=== PATIENT | male | born 1985 | race Caucasian/White ===

== ENCOUNTER 2020-08-22 09:19 | Outpatient (RCR) | payer BC, SELFPAY | END 2020-10-28 23:59 | LOC: IMMUN 09:19 | PROVIDERS: PCP Internal Medicine; Visit Provider Family Medicine | DX: Z23 Encounter for immunization (principal) | CPT/HCPCS: 0001A; 0002A; 91300 ==

== ENCOUNTER → 2023-06-20 | Outpatient (CLI) | payer BC, SELFPAY ==
--- OUTSIDE RECORDS SUMMARY | 2023-06-20 15:22 | XMS RPT_ITS | CCD ---
Author Name Unknown Address [address] [place] [address] Organization [facility] Care Team Providers Care Drafter Construction Name Role Phone Germain Dunham MD Primary Care Provider GERMAIN DUNHAM Primary Care Unavailable IVANA MUÑOZ Referring Unavailable GERMAIN DUNHAM Primary Care Unavailable IVANA MUÑOZ Attending Unavailable GERMAIN DUNHAM Primary Care Unavailable Allergies Allergy Classification Reported Allergen(s) Allergy Type Date of Onset Reaction(s) Facility (3 sources) Shellfish; Translations: [SHELLFISH] Food Allergy 03-28-2013 GI Upset, Vomiting [facility] Work Phone: Medications Completed/Discontinued Medications Medication Drug Class(es) Dates Sig (Normalized) Sig (Original) MEN'S MULTI-VITAMIN ORAL (2 sources) take 1 tablet by marah th once daily MEN'S MULTI-VITAMIN ORAL Take 1 tablet by mouth once daily. 0 Active Problems Active Problems Problem Classification Problem Date Documented Date Episodic/Chronic Disorders usually diagnosed in infancy, childhood, or adolescence (2 sources) Attention deficit hyperactivity disorder, predominantly inattentive type; Translations: [Other specified behavioral and emotional disorders with onset usually occurring in childhood and adolescence] Onset: 04-02-2005 06-11-2015 Chronic Immunizations and screening for infectious disease (1 source) Exposure to streptococcal pharyngitis; Translations: [Contact with and (suspected) exposure to other bacterial communicable diseases] Episodic Mood disorders (2 sources) Mild depression; Translations: [Mild depression] Onset: 01-16-2022 Chronic Other skin disorders (1 source) Disorder of sweat gland; Translations: [Eccrine sweat disorder, unspecified] Episodic Residual codes; unclassified (1 source) Low motivation; Translations: [Other specified personal risk factors, not elsewhere classified] Episodic Residual codes; unclassified (1 source) Intolerant of cold; Translations: [Other general symptoms and signs] Episodic Past or Other Problems Problem Classification Problem Date Documented Da te Episodic/Chronic Malaise and fatigue (2 sources) Fatigue; Translations: [Other fatigue] Onset: 01-16-2022 Episodic Other screening for suspected conditions (not mental disorders or infectious disease) (2 sources) Patient encounter status; Translations: [Encounter for screening for lipoid disorders] Onset: 01-16-2022 Episodic Other skin disorders (1 source) Eccrine sweat disorder, unspecified; Translations: [Sweating abnormality] Onset: 01-16-2022 Episodic Residual codes; unclassified (1 source) Other specified personal risk factors, not elsewhere classified; Translations: [Lack of motivation] Onset: 01-16-2022 Episodic Residual codes; unclassified (1 source) Other general symptoms and signs; Translations: [Intolerance to cold] Onset: 01-16-2022 Episodic Spondylosis; intervertebral disc disorders; other back problems (5 sources) Chronic low back pain; Translations: [Chronic bilateral low back pain, unspecified whether sciatica present] Onset: 01-26-2018 Episodic Results Test Name Value Interpretation Reference Range Facil ity Vital Signs Date Time Vital Sign Value Performing Clinician Thais lyman 05-31-2022 15:14-0500 Body temperature 97.5 [degF] Flex Smith APRN.CNP Work Phone: [facility] 05-31-2022 15:14-0500 Body weight 65.86 kg Flex Smith APRN.SHAUN Work Phone: [facility] 05-31-2022 15:14-0500 Diastolic blood pressure 74 mm[Hg] Flex Smith APRN.TIRE REBUILDER Work Phone: [facility] 05-31-2022 15:14-0500 Heart rate 65 /min Flex Smith APRN.TIRE REBUILDER Work Phone: [facility] 05-31-2022 15:14-0500 Respiratory rate 21 /min Flex Smith APRN.SHAUN Work Phone: [facility] 05-31-2022 15:14-0500 SaO2% (BldA) [Mass fraction] 100 % Flex Smith APRN.SHAUN Work Phone: [facility] 05-31-2022 15:14-0500 Systolic blood pressure 114 mm[Hg] Flex Smith TELEPHONE ANSWERING SERVICE OPERATOR.TIRE REBUILDER Work Phone: [facility] 01-11-2022 13:00-0400 Body weight 63.05 kg Ivana Muñoz TELEPHONE ANSWERING SERVICE OPERATOR.TIRE REBUILDER Work Phone: [facility] 01-11-2022 13:00-0400 Diastolic blood pressure 66 mm[Hg] Ivana Muñoz TELEPHONE ANSWERING SERVICE OPERATOR.TIRE REBUILDER Work Phone: [facility] 01-11-2022 13:00-0400 Heart rate 68 /min Ivana Muñoz TELEPHONE ANSWERING SERVICE OPERATOR.TIRE REBUILDER Work Phone: [facility] 01-11-2022 13:00-0400 Respiratory rate 16 /min Ivana Muñoz TELEPHONE ANSWERING SERVICE OPERATOR.TIRE REBUILDER Work Phone: [facility] 01-11-2022 13:00-0400 Systolic blood pressure 108 mm[Hg] Ivana Muñoz TELEPHONE ANSWERING SERVICE OPERATOR.TIRE REBUILDER Work Phone: [facility] Encounters Encounter Date Encounter Type Care Provider Facility Start: 05-31-2022 End: 05-31-2022 ambulatory GERMAIN DUNHAM Facility:[facility] Start: 05-31-2022 End: 05-31-2022 Patient encounter procedure Flex Hopperwillis TELEPHONE ANSWERING SERVICE OPERATOR.TIRE REBUILDER Work Phone: [facility] Procedures Date Procedure Procedure Detail Performing Clinician Start: 05-31-2022 STREP A MOLECULAR (POC) Melissa Forrest APRN.TIRE REBUILDER Work Phone: Start: 01-11-2022 Adult depression screening assessment Ivana [facility] TELEPHONE ANSWERING SERVICE OPERATOR.TIRE REBUILDER Work Phone: Plan of Treatment Date Care Activity Detail Author Start: 01-16-2027 LIPID SCREEN LIPID SCREEN [facility] Start: 12-22-2025 Urine microalbumin profile DTA P,TDAP,TD (9 - Td or Tdap) [facility] Start: 01-11-2023 Adult depression [facility] assessment DEPRESSION SCREENING [facility] Start: 01-11-2023 HEPATITIS C SCREENING HEPATITIS C [facility] Immunizations Immunization Date Immunization Notes Care Provider Trever sims 03-13-2021 influenza, injectabl e, quadrivalent, contains preservative Ivana Older TELEPHONE ANSWERING SERVICE OPERATOR.[facility] Work Phone: [facility] 03-18-2020 influenza, injectabl e, quadrivalent, contains preservative Ivana Older TELEPHONE ANSWERING SERVICE OPERATOR.[facility] Work Phone: [facility] 02-08-2019 influenza, injectabl e, quadrivalent, contains preservative Ivana Older TELEPHONE ANSWERING SERVICE OPERATOR.[facility] Work Phone: [facility] 01-26-2018 influenza, injectabl e, quadrivalent, preservative free Ivana Older TELEPHONE ANSWERING SERVICE OPERATOR.[facility] Work Phone: [facility] Work Phone: 12-23-2015 tetanus and diphther ia toxoids, adsorbed, preservative free, for adult use (5 Lf of tetanus toxoid and 2 Lf of diphtheria toxoid) Ivana Older TELEPHONE ANSWERING SERVICE OPERATOR.[facility] Work Phone: [facility] 06-11-2015 influenza, injectabl e, quadrivalent, contains preservative Ivana Older TELEPHONE ANSWERING SERVICE OPERATOR.[facility] Work Phone: [facility] 06-11-2015 influenza, injectabl e, quadrivalent, preservative free Ivana Older TELEPHONE ANSWERING SERVICE OPERATOR.[facility] Work Phone: [facility] Work Phone: 06-04-2014 influenza, seasonal, injectable Ivana Older TELEPHONE ANSWERING SERVICE OPERATOR.TIRE REBUILDER Work Phone: [facility] Work Phone: 03-07-2013 influenza, injectabl e, quadrivalent, preservative free Ivana Older TELEPHONE ANSWERING SERVICE OPERATOR.TIRE REBUILDER Work Phone: [facility] Work Phone: 03-07-2013 tetanus toxoid, redu vineet diphtheria toxoid, and acellular pertussis vaccine, adsorbed Ivana Older TELEPHONE ANSWERING SERVICE OPERATOR.TIRE REBUILDER Work Phone: [facility] Work Phone: 04-12-2007 influenza virus vacc ine, unspecified formulation Ivana Older TELEPHONE ANSWERING SERVICE OPERATOR.TIRE REBUILDER Work Phone: [facility] Work Phone: 12-29-2005 tetanus toxoid, redu vineet diphtheria toxoid, and acellular pertussis vaccine, adsorbed Ivana Older TELEPHONE ANSWERING SERVICE OPERATOR.[facility] Work Phone: [facility] Work Phone: 01-13-2004 meningococcal polysaccharide vaccine (MPSV4) Ivana Older TELEPHONE ANSWERING SERVICE OPERATOR.[facility] Work Phone: [facility] 04-13-1999 tetanus and diphther ia toxoids, adsorbed, preservative free, for adult use (2 Lf of tetanus toxoid and 2 Lf of diphtheria toxoid) Ivana Older TELEPHONE ANSWERING SERVICE OPERATOR.[facility] Work Phone: [facility] 12-31-1998 hepatitis B vaccine, pediatric or pediatric/adolescent dosage Ivana Older TELEPHONE ANSWERING SERVICE OPERATOR.[facility] Work Phone: [facility] 08-25-1998 hepatitis B vaccine, pediatric or pediatric/adolescent dosage Ivana Older TELEPHONE ANSWERING SERVICE OPERATOR.TIRE REBUILDER Work Phone: [facility] 12-11-1997 hepatitis B vaccine, pediatric or pediatric/adolescent dosage Ivana Older TELEPHONE ANSWERING SERVICE OPERATOR.TIRE REBUILDER Work Phone: [facility] 12-11-1997 measles, mumps and rubella virus vaccine Ivana Older TELEPHONE ANSWERING SERVICE OPERATOR.TIRE REBUILDER Work Phone: [facility] 01-12-1990 diphtheria, tetanus toxoids and pertussis vaccine Ivana Older TELEPHONE ANSWERING SERVICE OPERATOR.TIRE REBUILDER Work Phone: [facility] 01-12-1990 trivalent poliovirus vaccine, live, oral Ivana Older TELEPHONE ANSWERING SERVICE OPERATOR.TIRE REBUILDER Work Phone: [facility] Work Phone: 12-24-1987 measles, mumps and rubella virus vaccine Ivana Older TELEPHONE ANSWERING SERVICE OPERATOR.TIRE REBUILDER Work Phone: [facility] 09-02-1987 diphtheria, tetanus toxoids and pertussis vaccine Ivana Older TELEPHONE ANSWERING SERVICE OPERATOR.TIRE REBUILDER Work Phone: [facility] 09-02-1987 haemophilus influenz ae type b vaccine, HbOC conjugate Ivana Older TELEPHONE ANSWERING SERVICE OPERATOR.TIRE REBUILDER Work Phone: [facility] 09-02-1987 haemophilus influenz ae type b vaccine, PRP-D conjugate Ivana Older TELEPHONE ANSWERING SERVICE OPERATOR.[facility] Work Phone: [facility] Work Phone: 09-02-1987 trivalent poliovirus vaccine, live, oral Ivana Older TELEPHONE ANSWERING SERVICE OPERATOR.[facility] Work Phone: [facility] Work Phone: 08-22-1987 Chicken Pox (disease) Ivana Ol myah TELEPHONE ANSWERING SERVICE OPERATOR.TIRE REBUILDER Work Phone: [facility] Work Phone: 07-15-1986 diphtheria, tetanus toxoids and pertussis vaccine Ivana Older TELEPHONE ANSWERING SERVICE OPERATOR.[facility] Work Phone: [facility] 12-10-1985 diphtheria, tetanus toxoids and pertussis vaccine Ivana Older TELEPHONE ANSWERING SERVICE OPERATOR.[facility] Work Phone: [facility] 09-04-1985 diphtheria, tetanus toxoids and pertussis vaccine Ivana Older TELEPHONE ANSWERING SERVICE OPERATOR.[facility] Work Phone: [facility] 09-04-1985 trivalent poliovirus vaccine, live, oral Ivana Older TELEPHONE ANSWERING SERVICE OPERATOR.[facility] Work Phone: [facility] Work Phone: 05-28-1985 diphtheria, tetanus toxoids and pertussis vaccine Ivana Older TELEPHONE ANSWERING SERVICE OPERATOR.[facility] Work Phone: [facility] 05-28-1985 trivalent poliovirus vaccine, live, oral Ivana Older TELEPHONE ANSWERING SERVICE OPERATOR.[facility] Work Phone: [facility] Work Phone: 03-14-1985 diphtheria, tetanus toxoids and pertussis vaccine Ivana Older TELEPHONE ANSWERING SERVICE OPERATOR.[facility] Work Phone: [facility] 03-14-1985 trivalent poliovirus vaccine, live, oral Ivana Older TELEPHONE ANSWERING SERVICE OPERATOR.[facility] Work Phone: [facility] Work Phone: Payers Date Payer Category Payer Unknown [employer] PPO [id number] 2015-Present [phone] [address] [place] [address] PPO [id number] 2015 Unknown [id number] Social History Date Type Detail Facility Start: 06-11-2015 Tobacco smoking stat us NHIS Never smoked tobacco [facility] Work Phone: Start: 06-11-2015 Tobacco use and exposure Smoke less tobacco non-user [facility] Work Phone: Start: 01-11-2022 End: 05-31-2022 Alcohol intake Current drinker of alcohol (finding) [facility] Start: 01-11-2022 End: 05-31-2022 Alcohol intake [facility] Start: 01-11-2022 History SDOH Alcohol Frequency 5 [facility] Start: 01-11-2022 History SDOH Alcohol Std Drinks 1 [facility] Start: 01-11-2022 History SDOH Social Connections Get Together 2 [facility] Start: 01-11-2022 History SDOH Social Connections [employer] 3 [facility] Start: 1985 Sex Assigned At Not on file C [facility] Progress note 05-31-2022 Note Date & Type Note Facility 05-31-2022 Note HNO ID: [id number] Author: Flex Smith APRN.TIRE REBUILDER Service: ? Author Type: Nurse Practitioner Type: Progress Notes Filed: 05/31/2022 3:35 PM Note Text: Subjective HPI Nontoxic-appearing male presents urgent care chief plaint sinus drainage. Duration of symptom 1 week. Associated symptoms listed above. Presents today for testing for strep throat. States daughter and both tested first strep throat today and were positive. Concerned about possible group a pharyngeal infection. Has not used any OTC medications. Denies any significant pain. Denies any fever body aches chills productive cough chest pain shortness of breath pleuritic pain hemoptysis nausea vomiting abdominal pain change in bowel or bladder habits. Did have tonsils removed as a child. Past medical history prescription medication use and allergies reviewed. .Patient presents with: Sinus Problem: Drainage x 1 week PAST MEDICAL HISTORY Diagnosis Date Attention deficit disorder without mention of hyperactivity 1997 Ocular migraine Other psoriasis PAST SURGICAL HISTORY Procedure Laterality Date REMOVE TONSILS/ADENOIDS,12+ Y/O 1998 ALLERGIES Shellfish MEDICATIONS MEN'S MULTI-VITAMIN ORAL Take 1 tablet by mouth once daily. FAMILY HISTORY Problem Relation Age of Onset other (cholecystitis) Father Cancer Sister thyroid Prostate Cancer Maternal Grandfather Hypertension Maternal Grandfather Diabetes Maternal Grandfather ADULT ON-SET Diabetes Paternal Grandmother ADULT ON-SET Coronary Artery Disease Paternal Grandfather [place] Social History Tobacco Use Smoking status: Never Smokeless tobacco: Never Vaping Use Vaping Use: Never used Substance Use Topics Alcohol use: Yes Alcohol/week: 6.0 standard drinks Types: 6 Cans of Beer (12oz) per week Drug use: No BP 114/74 Pulse 65 Temp 36.4 ?C (97.5 ?F) Resp 21 Wt 65.9 kg (145 lb 3.2 oz) SpO2 100% BMI 20.25 kg/m? Review of Systems Constitutional: Negative for chills, fever and malaise/fatigue. HENT: Positive for congestion. Negative for ear discharge, ear pain, sinus pain and sore throat. Eyes: Negative for blurred vision, pain, discharge and redness. Respiratory: Negative for cough, hemoptysis, sputum production, shortness of breath, wheezing and stridor. Cardiovascular: Negative for chest pain. Gastrointestinal: Negative for abdominal pain, diarrhea, nausea and vomiting. Musculoskeletal: Negative for myalgias. Skin: Negative for itching and rash. Neurological: Negative for dizziness and headaches. Objective Physical Exam Constitutional: General: He is not in acute distress. Appearance: He is not diaphoretic. HENT: Head: Normocephalic. Mouth/Throat: Lips: [place]. Mouth: Mucous membranes are moist. Pharynx: Oropharynx is clear. Uvula midline. No pharyngeal swelling, oropharyngeal exudate, posterior oropharyngeal erythema or uvula swelling. Eyes: Conjunctiva/sclera: Conjunctivae normal. Pupils: Pupils are equal, round, and reactive to light. Cardiovascular: Rate and Rhythm: Normal rate and regular rhythm. Heart sounds: Normal heart sounds. Pulmonary: Effort: Pulmonary effort is normal. No tachypnea, accessory muscle usage or respiratory distress. Breath sounds: Normal breath sounds. No stridor. No wheezing, rhonchi or rales. Musculoskeletal: Cervical back: Normal range of motion and neck supple. No rigidity or tenderness. Lymphadenopathy: Cervical: No cervical adenopathy. Skin: General: Skin is warm and dry. Neurological: Mental Status: He is alert and oriented to person, place, and time. ASSESSMENT/PLAN: 1. Strep throat exposure - ICD9: V01.89, ICD10: Z20.818 Diagnosed with strep throat exposure. Strep test was negative. We will treat as a viral cause of nasal congestion. Patient was educated on supportive therapies. Patient will follow up with primary care provider as needed. Patient was instructed to immediately proceed to emergency room for any new, worsening, or symptoms lasting longer than anticipated. The patient's clinical presentation is otherwise unremarkable at this time. Based on exam and clinical finding, the patient is stable for discharge. Plan of care was discussed with patient. Patient verbalizes understanding and agrees to plan of care. This note was generated using [employer] software. It may contain errors in wording, punctuation, or spelling. Flex Smith APRN.SHAUN [facility] History of Present illness Narrative 05-31-2022 Flex Smith APRN.SHAUN - 05/31/2022 3:18 PM EST Note Date & Type Note Facility 05-31-2022 History of Presen t illness Narrative Subjective HPI Nontoxic-appearing male presents urgent care chief plaint sinus drainage. Duration of symptom 1 week. Associated symptoms listed above. Presents today for testing for strep throat. States daughter and both tested first strep throat today and were positive. Concerned about possible group a pharyngeal infection. Has not used any OTC medications. Denies any significant pain. Denies any fever body aches chills productive cough chest pain shortness of breath pleuritic pain hemoptysis nausea vomiting abdominal pain change in bowel or bladder habits. Did have tonsils removed as a child. Past medical history prescription medication use and allergies reviewed. .Patient presents with: Sinus Problem: Drainage x 1 week PAST MEDICAL HISTORY Diagnosis Date Attention deficit disorder without mention of hyperactivity 1997 Ocular migraine Other psoriasis PAST SURGICAL HISTORY Procedure Laterality Date REMOVE TONSILS/ADENOIDS,12+ Y/O 1998 ALLERGIES Shellfish MEDICATIONS MEN'S MULTI-VITAMIN ORAL Take 1 tablet by mouth once daily. FAMILY HISTORY Problem Relation Age of Onset other (cholecystitis) Father Cancer Sister thyroid Prostate Cancer Maternal Grandfather Hypertension Maternal Grandfather Diabetes Maternal Grandfather ADULT ON-SET Diabetes Paternal Grandmother ADULT ON-SET Coronary Artery Disease Paternal Grandfather [place] Social History Tobacco Use Smoking status: Never Smokeless tobacco: Never Vaping Use Vaping Use: Never used Substance Use Topics Alcohol use: Yes Alcohol/week: 6.0 standard drinks Types: 6 Cans of Beer (12oz) per week Drug use: No BP 114/74 Pulse 65 Temp 36.4 C (97.5 F) Resp 21 Wt 65.9 kg (145 lb 3.2 oz) SpO2 100% BMI 20.25 kg/m Review of Systems Constitutional: Negative for chills, fever and malaise/fatigue. HENT: Positive for congestion. Negative for ear discharge, ear pain, sinus pain and sore throat. Eyes: Negative for blurred vision, pain, discharge and redness. Respiratory: Negative for cough, hemoptysis, sputum production, shortness of breath, wheezing and stridor. Cardiovascular: Negative for chest pain. Gastrointestinal: Negative for abdominal pain, diarrhea, nausea and vomiting. Musculoskeletal: Negative for myalgias. Skin: Negative for itching and rash. Neurological: Negative for dizziness and headaches. Objective Physical Exam Constitutional: General: He is not in acute distress. Appearance: He is not diaphoretic. HENT: Head: Normocephalic. Mouth/Throat: Lips: [place]. Mouth: Mucous membranes are moist. Pharynx: Oropharynx is clear. Uvula midline. No pharyngeal swelling, oropharyngeal exudate, posterior oropharyngeal erythema or uvula swelling. Eyes: Conjunctiva/sclera: Conjunctivae normal. Pupils: Pupils are equal, round, and reactive to light. Cardiovascular: Rate and Rhythm: Normal rate and regular rhythm. Heart sounds: Normal heart sounds. Pulmonary: Effort: Pulmonary effort is normal. No tachypnea, accessory muscle usage or respiratory distress. Breath sounds: Normal breath sounds. No stridor. No wheezing, rhonchi or rales. Musculoskeletal: Cervical back: Normal range of motion and neck supple. No rigidity or tenderness. Lymphadenopathy: Cervical: No cervical adenopathy. Skin: General: Skin is warm and dry. Neurological: Mental Status: He is alert and oriented to person, place, and time. ASSESSMENT/PLAN: 1. Strep throat exposure - ICD9: V01.89, ICD10: Z20.818 Diagnosed with strep throat exposure. Strep test was negative. We will treat as a viral cause of nasal congestion. Patient was educated on supportive therapies. Patient will follow up with primary care provider as needed. Patient was instructed to immediately proceed to emergency room for any new, worsening, or symptoms lasting longer than anticipated. The patient's clinical presentation is otherwise unremarkable at this time. Based on exam and clinical finding, the patient is stable for discharge. Plan of care was discussed with patient. Patient verbalizes understanding and agrees to plan of care. This note was generated using [employer] software. It may contain errors in wording, punctuation, or spelling. Flex Smith APRN.SHAUN documented in this encounter [facility] Progress note 01-11-2022 Note Date & Type Note Facility 01-11-2022 Note HNO ID: [id number] Author: Ivana Muñoz APRN.CNP Service: ? Author Type: Nurse Practitioner Type: Progress Notes Filed: 01/11/2022 4:25 PM Note Text: CC: Patient presents with: Physical: Annual Physical HPI Bennett Huber is a 36 year old male established patient of Dr. Dunham who presents today for annual physical exam. Exercise: works out regularly by walking, playing with his children and yard work. Diet: Watches diet for salt (salty snacks, added salt, processed frozen/canned foods), sugary/sweet snacks, unhealthy fats: Yes Caffeine: 2 cups a day Water intake: large amouints a day average of 7-8 glasses aday. ADHD: controlled with behavior modifications. Had been on adderall and other stimulants since high school, but stopped these years ago because they were causing him palpitations. Has noticed fatigue and low motivation over the past year. Seems to not enjoy daily activities as much. Does report getting cold easily and intolerance of the cold. Also has noticed an increase in his sweating over the past year as well. Had read testosterone can cause this in males. Denies any noticeable low libido or sexual dysfunction. Did a PHQ-9 scale prior to coming in rating an 8. Has noticed an increase in difficulty concentrating with these symptoms Sleep: is described as normal. 6-7 hours. Denies snoring, waking up gasping, or witnessed apnea Alcohol use: drinks less than one drink a day Drug use: No Appetite: good Stresses: Major stressor: job is stressful a times Suicidal Thoughts: No suicidal ideation, intent or plan Support: Comes from multiple sources including Counseling: No Chronic back pain: Goes to the chiropractor, was last in physical therapy last year. Has been told he needs to do strength training to help with this. Denies difficulty or incontinence of bowel/bladder, weakness, or numbness. Does have tingling to legs intermittently when sciatica is present with back pain. REVIEW OF SYSTEMS General: no fevers, no chills, no night sweats, no recurrent infections, no change in appetite, no change in energy, and no significant changes in weight Respiratory: no cough, no wheezing, no shortness of breath, no hemoptysis Cardiovascular: no chest pain, no chest pressure, no palpitations, and no swelling GI: No nausea, vomiting, or diarrhea : No history of dysuria, frequency or incontinence Musculoskeletal: Negative for joint pain or swelling, or muscle pain outside of chronic controlled back pain. Skin: Negative for lesions, rash, and itching Psych: See HPI Endocrine: no weight gain, no weight loss, no heat intolerance, no polyuria, no polyphagia, and no polydipsia Neurologic: No headache, weakness, numbness, tingling, dizziness, syncope. PAST MEDICAL HISTORY Diagnosis Date Attention deficit disorder without mention of hyperactivity 1997 Ocular migraine Other psoriasis PAST SURGICAL HISTORY Procedure Laterality Date REMOVE TONSILS/ADENOIDS,12+ Y/O 1998 ALLERGIES Shellfish MEDICATIONS MEN'S MULTI-VITAMIN ORAL Take 1 tablet by mouth once daily. FAMILY HISTORY Problem Relation Age of Onset Prostate Cancer Maternal Grandfather Hypertension Maternal Grandfather Diabetes Maternal Grandfather ADULT ON-SET Diabetes Paternal Grandmother ADULT ON-SET Coronary Artery Disease Paternal Grandfather [place] Cancer Sister thyroid Social History Tobacco Use Smoking status: Never Smokeless tobacco: Never Substance Use Topics Alcohol use: Yes Alcohol/week: 15.0 standard drinks Types: 6 Cans of Beer (12oz) per week Comment: occasionally Drug use: No PHYSICAL EXAM BP 108/66 Pulse 68 Resp 16 Wt 63 kg (139 lb) BMI 19.39 kg/m? General Appearance: well appearing, in no acute distress, alert Pysch: mood and affect broad and appropriate Skin: Skin color, texture, turgor normal for age; Eyes: conjunctiva pink and moist, no icterus, sclera white, non-injected Neck: Thyroid normal size and symmetric without palpable nodules, No adenopathy Lymph nodes: No cervical lymphadenopathy and No supraclavicular lymphadenopathy Lungs: Lungs clear to auscultation. No wheezing, rhonchi, rales. Heart: RRR without murmur, gallop, or rubs. No ectopy Extremities: No deformities, edema, skin discoloration, clubbing or cyanosis. Good capillary refill. Neurological: Gait normal. Reflexes normal and symmetric. Sensation grossly intact. HEPATITIS C SCREENING Never done HIV SCREENING Never done LIPID SCREEN due on 12/26/2019 INFLUENZA(1) due on 01/21/2022 DEPRESSION SCREENING due on 01/11/2023 DTAP,TDAP,TD(9 - Td or Tdap) due on 12/22/2025 HEPATITIS B Completed COVID-19 VACCINE Completed ASSESSMENT/PLAN: 1. Annual physical exam - ICD9: V70.0, ICD10: Z00.00 (primary diagnosis) - Counseled on healthy diet and regular exercise - Counseled on limiting alcohol intake to 2 drinks per day - Depression screening tool complete (more content not included)... [facility] History of Present illness Narrative 01-11-2022 Ivana Muñoz APRN.CNP - 01/11/2022 1:03 PM EDT Note Date & Type Note Facility 01-11-2022 History of Presen t illness Narrative CC: Patient presents with: Physical: Annual Physical HPI Bennett Huber is a 36 year old male established patient of Dr. Dunham who presents today for annual physical exam. Exercise: works out regularly by walking, playing with his children and yard work. Diet: Watches diet for salt (salty snacks, added salt, processed frozen/canned foods), sugary/sweet snacks, unhealthy fats: Yes Caffeine: 2 cups a day Water intake: large amouints a day average of 7-8 glasses aday. ADHD: controlled with behavior modifications. Had been on adderall and other stimulants since high school, but stopped these years ago because they were causing him palpitations. Has noticed fatigue and low motivation over the past year. Seems to not enjoy daily activities as much. Does report getting cold easily and intolerance of the cold. Also has noticed an increase in his sweating over the past year as well. Had read testosterone can cause this in males. Denies any noticeable low libido or sexual dysfunction. Did a PHQ-9 scale prior to coming in rating an 8. Has noticed an increase in difficulty concentrating with these symptoms Sleep: is described as normal. 6-7 hours. Denies snoring, waking up gasping, or witnessed apnea Alcohol use: drinks less than one drink a day Drug use: No Appetite: good Stresses: Major stressor: job is stressful a times Suicidal Thoughts: No suicidal ideation, intent or plan Support: Comes from multiple sources including Counseling: No Chronic back pain: Goes to the chiropractor, was last in physical therapy last year. Has been told he needs to do strength training to help with this. Denies difficulty or incontinence of bowel/bladder, weakness, or numbness. Does have tingling to legs intermittently when sciatica is present with back pain. REVIEW OF SYSTEMS General: no fevers, no chills, no night sweats, no recurrent infections, no change in appetite, no change in energy, and no significant changes in weight Respiratory: no cough, no wheezing, no shortness of breath, no hemoptysis Cardiovascular: no chest pain, no chest pressure, no palpitations, and no swelling GI: No nausea, vomiting, or diarrhea : No history of dysuria, frequency or incontinence Musculoskeletal: Negative for joint pain or swelling, or muscle pain outside of chronic controlled back pain. Skin: Negative for lesions, rash, and itching Psych: See HPI Endocrine: no weight gain, no weight loss, no heat intolerance, no polyuria, no polyphagia, and no polydipsia Neurologic: No headache, weakness, numbness, tingling, dizziness, syncope. PAST MEDICAL HISTORY Diagnosis Date Attention deficit disorder without mention of hyperactivity 1997 Ocular migraine Other psoriasis PAST SURGICAL HISTORY Procedure Laterality Date REMOVE TONSILS/ADENOIDS,12+ Y/O 1998 ALLERGIES Shellfish MEDICATIONS MEN'S MULTI-VITAMIN ORAL Take 1 tablet by mouth once daily. FAMILY HISTORY Problem Relation Age of Onset Prostate Cancer Maternal Grandfather Hypertension Maternal Grandfather Diabetes Maternal Grandfather ADULT ON-SET Diabetes Paternal Grandmother ADULT ON-SET Coronary Artery Disease Paternal Grandfather [place] Cancer Sister thyroid Social History Tobacco Use Smoking status: Never Smokeless tobacco: Never Substance Use Topics Alcohol use: Yes Alcohol/week: 15.0 standard drinks Types: 6 Cans of Beer (12oz) per week Comment: occasionally Drug use: No PHYSICAL EXAM BP 108/66 Pulse 68 Resp 16 Wt 63 kg (139 lb) BMI 19.39 kg/m General Appearance: well appearing, in no acute distress, alert Pysch: mood and affect broad and appropriate Skin: Skin color, texture, turgor normal for age; Eyes: conjunctiva pink and moist, no icterus, sclera white, non-injected Neck: Thyroid normal size and symmetric without palpable nodules, No adenopathy Lymph nodes: No cervical lymphadenopathy and No supraclavicular lymphadenopathy Lungs: Lungs clear to auscultation. No wheezing, rhonchi, rales. Heart: RRR without murmur, gallop, or rubs. No ectopy Extremities: No deformities, edema, skin discoloration, clubbing or cyanosis. Good capillary refill. Neurological: Gait normal. Reflexes normal and symmetric. Sensation grossly intact. HEPATITIS C SCREENING Never done HIV SCREENING Never done LIPID SCREEN due on 12/26/2019 INFLUENZA(1) due on 01/21/2022 DEPRESSION SCREENING due on 01/11/2023 DTAP,TDAP,TD(9 - Td or Tdap) due on 12/22/2025 HEPATITIS B Completed COVID-19 VACCINE Completed ASSESSMENT/PLAN: 1. Annual physical exam - ICD9: V70.0, ICD10: Z00.00 (primary diagnosis) - Counseled on healthy diet and regular exercise - Counseled on limiting alcohol intake to 2 drinks per day - Depression screening tool completed and reviewed with patient. Based on score and interview, patient is at risk for depression and will evaluate lab work and if normal start a medication or counseling. - Follow up for annual exam in one year - LIPID PANEL BASIC - CBC + DIFF - COMP METABOLIC PANEL - TSH BLD 2. Fatigue, unspecified type - ICD9: 780.79, ICD10: R53.83 - discussed this may be from the depression. If labs are normal will discuss starting a low dose wellbutrin - CBC + DIFF - COMP METABOLIC PANEL - TESTOSTERONE, FREE AND TOTAL - TSH BLD - VITAMIN B12 BLOOD - T3 BLD - T4 FREE/FREE THYROX 3. Lack of motivation - ICD9: V49.89, ICD10: Z91.89 As above - CBC + DIFF - COMP METABOLIC PANEL - TESTOSTERONE, FREE AND TOTAL - TSH BLD - VITAMIN B12 BLOOD - T3 BLD - T4 FREE/FREE THYROX 4. Mild depression - ICD9: 311, ICD10: F32.A As above - CBC + DIFF - COMP METABOLIC PANEL - TESTOSTERONE, FREE AND TOTAL - TSH BLD 5. Lipid screening - ICD9: V77.91, ICD10: Z13.220 - LIPID PANEL BASIC - COMP METABOLIC PANEL 6. Intolerance to cold - ICD9: 780.99, ICD10: R68.89 - TESTOSTERONE, FREE AND TOTAL - TSH BLD - T3 BLD - T4 FREE/FREE THYROX 7. Sweating abnormality - ICD9: 705.89, ICD10: L74.9 - TESTOSTERONE, FREE AND TOTAL - TSH BLD - T3 BLD - T4 FREE/FREE THYROX 8. Chronic bilateral low back pain, unspecified whether sciatica present - ICD9: 724.2, 338.29, ICD10: M54.50, G89.29 - continue with chiropractor and plan on starting to work out. If you do decide for PT, please message me and I will order for you - go to ER for difficulty or incontinence of bowel or bladder, numbness, weakness, increased pain, or any other concerns. Prescription instructions reviewed with patient as applicable. Potential red flag symptoms discussed with the patient. Reviewed appropriate action plan to take if red flag symptoms occur. Patient agreeable to treatment plan. Ivana Muñoz APRN.CNP documented in this encounter [facility] History of Past illness Narrative 07-07-2012 Note Date & Type Note Facility documented as of this encounter (statuses as of 01/11/2022) [facility] History of Past illness Narrative 07-07-2012 Note Date & Type Note Facility documented as of this encounter (statuses as of 05/31/2022) [facility] Evaluation note Note Date & Type Note Facility documented in this encounter [facility] Evaluation note Note Date & Type Note Facility documented in this encounter [facility] Summary Purpose Family History No Family History Records Found Advance Directives No Advanced Directives Records Found Additional Source Comments Source Comments (unrecognize d section and content) In the event this informatio n is protected by the Federal Confidentiality of Alcohol and Drug Abuse Patient Records regulations: The Federal rules restrict any use of the information to criminally investigate or prosecute any alcohol or drug abuse patient[facility] event this information is protected by the Federal Confidentiality of Alcohol and Drug Abuse Patient Records regulations: The Federal rules restrict any use of the information to criminally investigate or prosecute any alcohol or drug abuse patient.[facility] Reason for Visit (unrecogniz ed section and content) Reason Comments Sinus Problem Drainage x 1 week Care Teams (unrecognized sec tion and content) [employer] Relationship Specialty Start Date End Date Germain Dunham MD [address] [place] [address] PCP - General Internal Medicine 06/08/16 (unrecognized sect ion and content) No Status Records Found INFORMATION SOURCE (unrecogn ized section and content) FOR RECORDS PERTAINING TO PATIENTS WHO ARE OR HAVE BEEN ENROLLED IN A CHEMICAL DEPENDENCY/SUBSTANCEABUSE PROGRAM, SOME INFORMATION MAY BE OMITTED. This clinical summary was aggregated from multiple sources. Caution should be exercised in using it in the provision of clinical care. This summary normalizes information from multiple sources, and as a consequence, information in this document may materially change the coding, format and clinical context of patient data. In addition, data may be omitted in some cases. CLINICAL DECISIONS SHOULD BE BASED ON THE PRIMARY CLINICAL RECORDS. [facility]. provides no warranty or guarantee of the accuracy or completeness of information in this document.
[2023-06-20 17:33] LABS: Absolute Lymphocyte Count 1.85 X10^3/uL (0.83-4.51); Basophil# 0.05 X10^3/uL; Basophil% 0.9 % (0-1); Eosinophil# 0.11 X10^3/uL; Hematocrit 44.7 % (40-54); Hemoglobin 14.9 g/dL (13.0-16.5); Lymphocyte # 1.85 X10^3/ul (0.83-4.51); Lymphocyte % 33.8 % (19-41); Mean Corp Hgb Conc 33.3 g/dL (32-36); Mean Corpuscular Hgb 31.1 pg (27.0-32.0); Mean Corpuscular Volume 93.3 fL (80-94); Monocyte# 0.49 X10^3/uL; Monocyte% 8.9 % (0-10); NRBC Flagged by Analyzer 0 % (0-5); Neutrophil # 2.98 X10^3/uL (2.7-7.7); Neutrophil % 54.4 % (47-70); Platelet Count 261 K/mm3 (150-450); RBC Distribution Width SD 41.5 fl (35.1-43.9); Red Blood Count 4.79 M/mm3 (4.6-6.2); White Blood Count 5.5 K/mm3 (4.4-11.0)
[2023-06-20 18:07] LABS: Hemoglobin A1c 5.2 % (3.8-5.6)
[2023-06-20 18:12] LABS: ALB/GLOB Ratio 1.3 RATIO (0.9-2.4); AST(SGOT) 29 U/L (15-37); Alanine Aminotransfer ALT/SGPT 33 U/L (16-61); Albumin, Serum 4.2 g/dL (3.2-5.0); Alkaline Phosphatase 73 U/L (45-117); Anion Gap 4 (5-15); BUN 21 mg/dL (7-18); BUN/Creat Ratio 19.1 RATIO (10-20); Calcium,Total 9.4 mg/dL (8.5-10.1); Chloride 102 mmol/L (98-107); Cholesterol 167 mg/dL (200); EST Glomerular Filtration Rate 79 mL/min (>60); Est Glom Filt Rate - Afr Amer 96 mL/min (>60); Globulin 3.3 g/dL (2.2-4.2); Glucose 72 mg/dL (74-106); High Density Lipoprotein 70 mg/dL; Protein, Total 7.5 g/dL (6.4-8.2); Sodium Level 136 mmol/L (136-145); Thyroid Stim Hormone (TSH) 0.91 uIU/mL (0.358-3.74); Triglycerides 74 mg/dL; Very Low Density Lipoprotein 15 mg/dL (5-40)
== END | disposition home or self-care (01) ==
LOC: MFPLAB 14:58
PROVIDERS: PCP Family Medicine; Visit Provider Family Medicine
DX: Z13.228 Encounter for screening for other metabolic disorders (principal); Z13.0 Encounter for screening for diseases of the blood and blood-forming organs and certain disorders involving the immune mechanism
CPT/HCPCS: 36415; 80050; 80053; 80061; 83036; 84443; 85025

== ENCOUNTER → 2025-03-20 | Outpatient (CLI) | payer BC, SELFPAY ==
[2025-03-20 10:28] LABS: Hematocrit 41.7 % (40-54); Hemoglobin 13.9 g/dL (13.0-16.5); Immature Granulocytes Count 0.010 X10^3/uL (0.0-0.0); Mean Corp Hgb Conc 33.3 g/dL (32-36); Mean Corpuscular Volume 93.1 fL (80-94); Mean Platelet Vol. 11.3 fl (6.2-12.0); NRBC Flagged by Analyzer 0 % (0-5); Platelet Count 256 K/mm3 (150-450); RBC Distribution Width CV 12.9 % (11.6-14.6); RBC Distribution Width SD 44.1 fl (35.1-43.9); Red Blood Count 4.48 M/mm3 (4.6-6.2); White Blood Count 5.6 K/mm3 (4.4-11.0)
[2025-03-20 10:54] LABS: AST(SGOT) 31 U/L (<=37); Alanine Aminotransfer ALT/SGPT 22 U/L (<=46); Albumin, Serum 4.4 g/dL (3.5-5.0); Alkaline Phosphatase 69 U/L (40-129); Anion Gap 9 (5-15); BUN 24 mg/dL (4-19); BUN/Creat Ratio 23.1 RATIO (10-20); Calcium,Total 9.4 mg/dL (7.6-11.0); Carbon Dioxide 27.3 mmol/L (21.0-32.0); Chloride 105 mmol/L (98-108); Cholesterol 165 mg/dL (<=200); Globulin 2.6 g/dL (2.2-4.2); Glucose 97 mg/dL (70-99); Low Density Lipoprotein Calc. 91 mg/dL; Potassium 4.8 mmol/L (3.3-5.1); Triglycerides 35 mg/dL; Very Low Density Lipoprotein 7 mg/dL (5-40); cholesterol:hdl ratio screen 2.52
[2025-03-24 16:08] LABS: Thyroid Stim Immunoglob <0.10 IU/L (0.00-0.55)
== END | disposition home or self-care (01) ==
LOC: MTLAB 09:17
PROVIDERS: PCP Family Medicine; Referring Provider Family Medicine; Visit Provider Family Medicine
DX: Z13.220 Encounter for screening for lipoid disorders (principal); Z80.8 Family history of malignant neoplasm of other organs or systems; Z13.1 Encounter for screening for diabetes mellitus
CPT/HCPCS: 36415; 80053; 80061; 84443; 84445; 85025

== ENCOUNTER → 2025-03-29 | Outpatient (CLI) | payer BC, SELFPAY ==
[2025-03-29 17:58] LABS: CRP < 3.00 mg/L (0.0-3.0)
[2025-04-01 12:08] LABS: Lyme Scn Total Ab w/Rflx Negative (Negative)
== END | disposition home or self-care (01) ==
PROVIDERS: PCP Family Medicine; Referring Provider Family Medicine; Visit Provider Family Medicine
DX: R29.898 Other symptoms and signs involving the musculoskeletal system (principal)
CPT/HCPCS: 36415; 85652; 86140; 86200; 86431; 86618